=== PATIENT | male | born 1965 | race Caucasian/White ===

== ENCOUNTER 2021-03-25 09:47 | Outpatient (REF) | payer MEDICARE, MEDICAID, SELFPAY ==
[2021-03-25 10:34] LABS: Hemoglobin 15.9 g/dl (14.0-18.0); Mean Corpuscular Volume 86.9 fL (80.0-98.0); PLT CLUMP 1; Red Cell Distribution Width 13.1 % (11.0-16.0); SCAN SMEAR FLAG 1
[2021-03-25 10:35] LABS: Basophils Absolute Auto 0.1 X10*3/uL (0.0-0.2); Basophils Percent Auto 0.6 % (0-2); Eosinophils Absolute Auto 0.3 X10*3/uL (0.0-0.4); Hematocrit 47.9 % (42.0-52.0); Imm Gran Abs Auto 0.01 X10*3/uL (0.00-0.03); Imm Gran Pct Auto 0.1 % (0.0-0.4); Lymphocytes Absolute Auto 2.9 X10*3/uL (1.2-4.9); Lymphocytes Percent Auto 37.4 % (20-40); MANUAL DIFF FLAG SCAN; Mean Corpuscular HGB Conc 33.2 g/dl (31.0-36.0); Mean Corpuscular Hemoglobin 28.9 pg (27.0-33.0); Mean Platelet Volume 10.4 fL (9.4-12.4); Monocytes Absolute Auto 0.6 X10*3/uL (0.1-1.2); Monocytes Percent Auto 8.3 % (2-11); Neutrophils Absolute Auto 3.8 x10*3/uL (2.0-8.3); Neutrophils Percent Auto 49.6 % (45-73); Red Blood Count 5.51 X10*6/uL (4.60-5.80)
[2021-03-25 10:58] LABS: Estimated Average Glucose 108 mg/dL; Hemoglobin A1c % 5.4 %
[2021-03-25 11:05] LABS: Alanine Aminotransferase 26 U/L (0-40); Anion Gap 12 (12-20); Aspartate Amino Transferase 19 U/L (5-37); Blood Urea Nitrogen 13 mg/dL (9-16); Calcium 9.8 mg/dL (8.4-10.2); Carbon Dioxide 27 mmol/L (22-29); Chloride 103 mmol/L (96-108); Cholesterol 219 mg/dL; Estimated Glomerular Filt Rate > 60; Glucose Fasting 97 mg/dL (60-99); HDL Cholesterol 34 mg/dL; LDL Cholesterol Calculated 150 mg/dl; Sodium 138 mmol/L (135-145); Triglycerides 175 mg/dL
[2021-03-25 11:06] LABS: Platelet Count 197 X10*3/uL (160-400); White Blood Count 7.7 X10*3/uL (4.8-10.8)
[2021-03-25 11:07] LABS: SLIDE REVIEW VERIFIED
[2021-03-25 11:28] LABS: Free T4 (Free Thyroxine) 0.96 ng/dL (0.71-1.85); Thyroid Stimulating Hormone 1.23 uIU/mL (0.32-4.0)
== END 2021-03-25 09:48 | disposition home or self-care (01) ==
LOC: HO.LAB 09:47
PROVIDERS: PCP Nurse Practitioner Family; Visit Provider Clinical Nurse Specialist Psychiatric/Mental Health, Child & Adolescent
DX: Z51.81 Encounter for therapeutic drug level monitoring (principal); Z79.899 Other long term (current) drug therapy
CPT/HCPCS: 36415; 80048; 80061; 83036; 84439; 84443; 84450; 84460; 85025